=== PATIENT | female | born 1955 | race Caucasian/White ===

== ENCOUNTER 2017-10-12 15:41 | Emergency (ER) | payer BC, OTHER ==
[~2017-10-12] VITALS: Ht 165.1 cm; Wt 61.4 kg
[2017-10-12] MEDS ORDERED: ALPR0.257 SL (16:14)
[2017-10-12 17:00] VITALS: BP 106/60
== END 2017-10-12 17:57 | disposition home or self-care (01) ==
LOC: ED 16:45
DX: S72.114A Nondisplaced fracture of greater trochanter of right femur, initial encounter for closed fracture (principal); W19.XXXA Unspecified fall, initial encounter; Y93.89 Activity, other specified; Y92.410 Unspecified street and highway as the place of occurrence of the external cause; Y99.8 Other external cause status
CPT/HCPCS: 99284